=== PATIENT | female | born 1995 | race Hispanic/Latino ===

== ENCOUNTER 2018-12-29 10:11 | Emergency (ER) | payer OTHER ==
[~2018-12-29] VITALS: Ht 172.7 cm; Wt 70.4 kg
[2018-12-29] MEDS ORDERED: NS 1,000 ML IV ONE (11:45)
[2018-12-29 12:05] LABS: BASO % 0.6 % (0.0-1.0); EOS # 0.2 10^3/uL (0.0-0.50); EOS % 2.2 % (0.0-3.0); HEMATOCRIT 43.7 % (36.0-47.0); HEMOGLOBIN 15.1 g/dl (12.0-15.5); LYMPH # 1.1 10^3/uL (1.5-6.5); MEAN CORPUSCULAR HEMOGLOBIN 30.4 pg (27.0-33.0); MEAN CORPUSCULAR HGB CONC 34.6 g/dl (32.0-36.5); MEAN CORPUSCULAR VOLUME 88.1 fl (80.0-96.0); MONO # 0.4 10^3/uL (0.0-0.8); MONO % 6.3 % (0.0-5.0); NEUTROPHILS % 74.8 % (36.0-66.0); PLATELET COUNT, AUTOMATED 255 10^3/uL (150-450); RED BLOOD COUNT 4.96 10^6/uL (4.00-5.40); WHITE BLOOD COUNT 6.7 10^3/uL (4.0-10.0)
[2018-12-29 12:32] LABS: HCG, SERUM QUALITATIVE NEGATIVE (NEGATIVE)
[2018-12-29 12:34] LABS: ALBUMIN 4.2 GM/DL (3.2-5.2); ALT/SGPT 21 U/L (12-78); AMYLASE 57 U/L (25-115); BILIRUBIN,DIRECT 0.1 MG/DL (0.0-0.2); BILIRUBIN,TOTAL 0.4 MG/DL (0.2-1.0); BLOOD UREA NITROGEN 14 MG/DL (7-18); CALCIUM LEVEL 9.3 MG/DL (8.5-10.1); CARBON DIOXIDE LEVEL 27 MEQ/L (21-32); CHLORIDE LEVEL 108 MEQ/L (98-107); CREATININE FOR GFR 0.78 MG/DL (0.55-1.30); GLOMERULAR FILTRATION RATE > 60.0 (>60); GLUCOSE, FASTING 85 MG/DL (70-100); LIPASE 196 U/L (73-393); POTASSIUM SERUM 3.8 MEQ/L (3.5-5.1); SODIUM LEVEL 141 MEQ/L (136-145); TOTAL PROTEIN 8.3 GM/DL (6.4-8.2)
--- NOTE | 2018-12-29 14:46 | REP ---
CT ABDOMEN AND PELVIS WITHOUT CONTRAST: CT abdomen and pelvis is performed without oral or IV contrast. Sagittal and coronal reconstruction images are performed. Visualized lung bases are clear. Liver, spleen, adrenals, and pancreas are grossly unremarkable. Horseshoe kidney is noted. There is no evidence of hydroureteronephrosis. No renal, ureteral or bladder calculus is seen. There is no abdominal aortic aneurysm. There is no adenopathy. There is no free air or free fluid. There is no bowel thickening. There is no appendicitis. No pelvic mass is seen. Urinary bladder is mildly distended and grossly unremarkable. IMPRESSION: Horseshoe kidney noted. No evidence of renal, ureteral or bladder calculus. No hydroureteronephrosis. Electronically Signed by Eric Jin MD 12/30/2018 12:30 P
[2018-12-29 15:39] VITALS: BP 103/61
--- NOTE | 2018-12-29 18:36 | REP ---
PELVIC ULTRASOUND: Real-time sonographic evaluation of the pelvis was performed. Bladder measures 3.5 x 2.2 x 4.6 cm. The uterus measures 7.4 x 3.2 x 4.2 cm. Endometrial thickness is 7 mm. No endometrial fluid collection is seen. Ovaries are normal in size and echotexture, right ovary measuring 3.4 x 2.1 x 2.9 cm and left ovary 3.8 x 2.4 x 2.5 cm. There is no adnexal mass. There is a dominant follicle of the left ovary 1.1 cm in diameter. There is no torsion. Resistive index right ovary 0.55 and left ovary 0.67 with duplex Doppler evaluation. There is trace free fluid along the fundus of the uterus. IMPRESSION: Essentially negative pelvic ultrasound. No ovarian torsion. Dominant follicle left ovary 1.1 cm in diameter. Electronically Signed by Eric Jin MD 12/30/2018 12:39 P
== END 2018-12-29 15:59 | disposition home or self-care (01) ==
LOC: M ED 10:11
DX: N83.02 Follicular cyst of left ovary (principal); N91.1 Secondary amenorrhea

== ENCOUNTER → 2019-01-20 | Outpatient (REF) | payer OTHER | LOC: M LAB REF 13:10 | PROVIDERS: ATTEND Advanced Practice Midwife | DX: Z12.4 Encounter for screening for malignant neoplasm of cervix (principal) ==